=== PATIENT | male | born 1990 | race Caucasian/White ===

== ENCOUNTER 2016-10-31 09:57 | Inpatient (IN) | payer OTHER ==
[~2016-10-31] VITALS: Ht 170.1 cm; Wt 74.2 kg
[~2016-10-31 09:57] MED LIST: EFFEXOR XR150 M1 PO; ETODOLAC300 M1 PO; FLOMAX0.4 MG PO; GABAPENTIN TAB600 MG PO; PAXIL20 M1 PO; XANAX2 M1 PO
[2016-10-31 10:06] VITALS: BP 153/69
[2016-10-31] MEDS ORDERED: METHADONE HCL40 M2 PO (10:26)
[2016-10-31] MEDS ORDERED: TRAZADONE HYDR100 MG PO (10:27)
[2016-10-31 10:31] LABS: BASO % 0.3 % (0.0-1.0); EOS % 0.3 % (1.0-4.0); HEMATOCRIT 44.7 % (42.0-52.0); HEMOGLOBIN 15.4 g/dl (14.0-18.0); LYMPH # 3.1 10*3/uL (1.3-4.4); LYMPH % 26.5 % (27.0-41.0); MEAN CELL VOLUME 89.6 fl (80.0-94.0); MEAN CORPUSCULAR HGB 30.9 pg (27.0-31.0); MEAN CORPUSCULAR HGB CONC 34.5 g/dl (33.0-37.0); MEAN PLATELET VOLUME 11.2 fl (9.6-12.3); MONO # 0.7 10*3/uL (0.1-1.0); MONO % 6.2 % (3.0-9.0); NEUT # 7.9 10*3/uL (2.3-7.9); NEUT % 66.4 % (47.0-73.0); PLATELET COUNT AUTOMATED 251 10*3/uL (130-400); RED BLOOD COUNT 4.99 10*6/uL (4.50-5.90); WHITE BLOOD COUNT 11.8 10*3/uL (4.8-10.8)
[2016-10-31 10:44] LABS: PROTHROMBIN TIME 10.5 SECONDS (9.0-12.4)
[2016-10-31 10:46] LABS: ALBUMIN 4.7 gm/dl (3.1-4.5); ALKALINE PHOSPHATASE 109 U/L (45-117); BILIRUBIN, TOTAL 0.6 mg/dl (0.2-1.0); BUN 9 mg/dl (7-24); CARBON DIOXIDE 29 mmol/L (21-32); CHLORIDE 105 mmol/L (98-107); EST GLOM FILT AFRICAN AMERICAN > 60 ml/min; GLUCOSE 143 mg/dL (65-99); POTASSIUM 3.5 mmol/L (3.5-5.1); SGOT/AST 20 IU/L (3-35); SGPT/ALT 25 U/L (12-78); SODIUM 141 mmol/L (136-145)
[2016-10-31 10:48] LABS: C-REACTIVE PROTEIN < 0.29 MG/DL (0-0.3); TROPONIN I < 0.015 ng/ml (<0.045)
[2016-10-31 12:00] VITALS: BP 110/72
[2016-10-31 13:54] LABS: BILIRUBIN NEGATIVE (NEGATIVE); BLOOD NEGATIVE (NEGATIVE); CLARITY CLEAR (CLEAR); COLOR YELLOW (YELLOW); GLUCOSE NEGATIVE (NEGATIVE); KETONE NEGATIVE (NEGATIVE); LEUKO ESTERASE NEGATIVE (NEGATIVE); NITRITE NEGATIVE (NEGATIVE); PH 5.5 (5.0-9.0); PROTEIN NEGATIVE (NEGATIVE); SPECIFIC GRAVITY <= 1.005 (1.005-1.030); UROBILINOGEN 0.2 E.U./dl (0.2-1.0)
[2016-10-31 14:03] LABS: EPITHELIAL CELLS 0-2; RBC 0-2 rbc/hpf (0-2); URINE AMPHETAMINES < 1000 (1000ng/ml); URINE BARBITURATES < 200 (200ng/ml); URINE COCAINE < 300 (300ng/ml); URINE REFLEX COMMENT NO (NO); WBC 0-2 wbc/hpf (0-5)
[2016-10-31 14:50] VITALS: BP 134/82
[2016-10-31] MEDS ORDERED: XANAX2 M1 PO (15:10)
[2016-10-31] MEDS ORDERED: MIRTAZAPINE15 M1 PO (15:11)
[2016-10-31] MEDS ORDERED: FLOMAX0.4 MG PO (15:12)
[2016-10-31] MEDS ORDERED: PROVENTIL0.09 MG/A1 INH (15:13)
[2016-10-31] MEDS ORDERED: EFFEXOR XR150 M1 PO (15:13)
[2016-10-31 16:00] VITALS: BP 110/72
[2016-10-31] MEDS ORDERED: TRAZODONE100 MG PO (17:05)
== END 2016-10-31 17:50 | disposition left against medical advice (07) | DRG 282 ==
LOC: ED 09:57 → EDHOLD 13:40 → 4E 14:10
PROVIDERS: Emergency Medicine
DX: I21.3 ST elevation (STEMI) myocardial infarction of unspecified site (principal); R55 Syncope and collapse; M54.9 Dorsalgia, unspecified; R03.0 Elevated blood-pressure reading, without diagnosis of hypertension; Z53.21 Procedure and treatment not carried out due to patient leaving prior to being seen by health care provider; R51 Headache; F17.210 Nicotine dependence, cigarettes, uncomplicated; Z79.899 Other long term (current) drug therapy; Z71.6 Tobacco abuse counseling

== ENCOUNTER 2021-10-13 02:48 | Emergency (ER) | payer OTHER ==
[~2021-10-13] VITALS: Ht 172.7 cm; Wt 72.6 kg
[~2021-10-13 02:48] MED LIST changes: +METHADONE HCL40 M2 PO; +MIRTAZAPINE15 M1 PO; +PROVENTIL0.09 MG/A1 INH; +TRAZADONE HYDR100 MG PO; +TRAZODONE100 MG PO
== END 2021-10-13 03:26 | disposition left against medical advice (07) ==
LOC: ED 02:48
DX: T50.901A Poisoning by unspecified drugs, medicaments and biological substances, accidental (unintentional), initial encounter (principal); R03.0 Elevated blood-pressure reading, without diagnosis of hypertension; R00.0 Tachycardia, unspecified; Z87.891 Personal history of nicotine dependence; Z79.899 Other long term (current) drug therapy; Y92.89 Other specified places as the place of occurrence of the external cause

== ENCOUNTER 2021-12-01 16:06 | Emergency (ER) | payer OTHER ==
[~2021-12-01] VITALS: Ht 170.1 cm; Wt 74.8 kg
[2021-12-01] MEDS ORDERED: MEDROL DOSEPAK4 MG PO (18:14)
== END 2021-12-01 19:23 | disposition home or self-care (01) ==
LOC: ED 16:06
DX: G57.00 Lesion of sciatic nerve, unspecified lower limb (principal); F17.210 Nicotine dependence, cigarettes, uncomplicated; Z79.899 Other long term (current) drug therapy; Z98.890 Other specified postprocedural states

== ENCOUNTER 2022-11-13 09:51 | Emergency (ER) | payer OTHER ==
[~2022-11-13] VITALS: Ht 172.7 cm; Wt 74.8 kg
[~2022-11-13 09:51] MED LIST changes: +MEDROL DOSEPAK4 MG PO
[2022-11-13] MEDS ORDERED: VALIUM10 MG PO (10:12)
[2022-11-13] MEDS ORDERED: BUSPAR5 MG PO (10:13)
== END 2022-11-13 11:46 | disposition home or self-care (01) ==
LOC: ED 09:51
DX: S41.111A Laceration without foreign body of right upper arm, initial encounter (principal); S80.872A Other superficial bite, left lower leg, initial encounter; S80.871A Other superficial bite, right lower leg, initial encounter; R07.89 Other chest pain; F17.200 Nicotine dependence, unspecified, uncomplicated; Z79.899 Other long term (current) drug therapy; W54.0XXA Bitten by dog, initial encounter; Y93.89 Activity, other specified; Y92.89 Other specified places as the place of occurrence of the external cause; Y99.8 Other external cause status

== ENCOUNTER 2022-11-14 18:43 | Inpatient (IN) | payer OTHER ==
[~2022-11-14] VITALS: Ht 172.7 cm; Wt 69.0 kg
[~2022-11-14 18:43] MED LIST changes: +BUSPAR5 MG PO; +VALIUM10 MG PO
[2022-11-14 18:56] VITALS: BP 112/86
[2022-11-14 20:05] LABS: BASO % 0.3 % (0.0-1.0); EOS # 0.1 10*3/uL (0.0-0.4); HEMATOCRIT 42.1 % (42.0-52.0); LYMPH # 2.2 10*3/uL (1.3-4.4); LYMPH % 19.6 % (27.0-41.0); MEAN CELL VOLUME 86.3 fl (80.0-94.0); MEAN CORPUSCULAR HGB 30.9 pg (27.0-31.0); MEAN CORPUSCULAR HGB CONC 35.9 g/dl (33.0-37.0); MEAN PLATELET VOLUME 11.1 fl (9.6-12.3); MONO # 1.2 10*3/uL (0.1-1.0); MONO % 10.5 % (3.0-9.0); NEUT # 7.8 10*3/uL (2.3-7.9); NEUT % 68.4 % (47.0-73.0); PLATELET COUNT AUTOMATED 258 10*3/uL (130-400); RED BLOOD COUNT 4.88 10*6/uL (4.50-5.90); RED CELL DISTRI WIDTH 11.9 % (0-14.5); WHITE BLOOD COUNT 11.5 10*3/uL (4.8-10.8)
[2022-11-14 20:26] LABS: ALKALINE PHOSPHATASE 112 U/L (46-116); BUN 23 mg/dl (9-23); CHLORIDE 95 mmol/L (98-107); POTASSIUM 2.8 mmol/L (3.4-5.1); SGPT/ALT 74 U/L (10-49); TOTAL PROTEIN 7.9 gm/dL (6.0-8.0)
[2022-11-15 01:20] VITALS: BP 120/63
[2022-11-15] MEDS ORDERED: REMERON15 M2 PO (02:15)
[2022-11-15 06:33] LABS: BASO % 0.4 % (0.0-1.0); EOS # 0.1 10*3/uL (0.0-0.4); EOS % 1.3 % (1.0-4.0); HEMATOCRIT 41.4 % (42.0-52.0); LYMPH # 2.5 10*3/uL (1.3-4.4); LYMPH % 24.8 % (27.0-41.0); MEAN CELL VOLUME 88.5 fl (80.0-94.0); MEAN CORPUSCULAR HGB 31.2 pg (27.0-31.0); MEAN CORPUSCULAR HGB CONC 35.3 g/dl (33.0-37.0); MEAN PLATELET VOLUME 10.8 fl (9.6-12.3); MONO # 1.1 10*3/uL (0.1-1.0); MONO % 10.8 % (3.0-9.0); NEUT # 6.4 10*3/uL (2.3-7.9); NEUT % 62.5 % (47.0-73.0); PLATELET COUNT AUTOMATED 241 10*3/uL (130-400); RED BLOOD COUNT 4.68 10*6/uL (4.50-5.90); RED CELL DISTRI WIDTH 12.2 % (0-14.5); WHITE BLOOD COUNT 10.2 10*3/uL (4.8-10.8)
[2022-11-15 07:26] LABS: ALKALINE PHOSPHATASE 95 U/L (46-116); BUN 19 mg/dl (9-23); CHLORIDE 101 mmol/L (98-107); POTASSIUM 3.3 mmol/L (3.4-5.1); SGPT/ALT 62 U/L (10-49)
[2022-11-15 07:48] VITALS: BP 116/74
[2022-11-15] MEDS ORDERED: BUSPAR15 MG PO (09:20)
[2022-11-15 12:00] VITALS: BP 126/69
[2022-11-15 16:00] VITALS: BP 130/70
[2022-11-15 20:00] VITALS: BP 127/73
[2022-11-16] VITALS: BP 123/66
[2022-11-16 06:19] LABS: ALKALINE PHOSPHATASE 87 U/L (46-116); BUN 12 mg/dl (9-23); CHLORIDE 109 mmol/L (98-107); CHOLESTEROL 91 mg/dL (<200); LDL CHOLESTEROL 28 mg/dL (9-159); POTASSIUM 3.6 mmol/L (3.4-5.1); SGPT/ALT 44 U/L (10-49); THYROID STIM HORMONE (HS) 0.514 uIU/ml (0.550-4.780); TOTAL PROTEIN 5.8 gm/dL (6.0-8.0); TRIGLYCERIDES 104 mg/dl (<150)
[2022-11-16 06:34] LABS: BASO % 0.5 % (0.0-1.0); EOS # 0.3 10*3/uL (0.0-0.4); EOS % 2.9 % (1.0-4.0); HEMATOCRIT 37.7 % (42.0-52.0); LYMPH # 2.8 10*3/uL (1.3-4.4); LYMPH % 32.1 % (27.0-41.0); MEAN CORPUSCULAR HGB 31.4 pg (27.0-31.0); MEAN CORPUSCULAR HGB CONC 33.7 g/dl (33.0-37.0); MEAN PLATELET VOLUME 11.4 fl (9.6-12.3); MONO # 0.9 10*3/uL (0.1-1.0); MONO % 10.7 % (3.0-9.0); NEUT # 4.6 10*3/uL (2.3-7.9); NEUT % 53.6 % (47.0-73.0); PLATELET COUNT AUTOMATED 221 10*3/uL (130-400); RED BLOOD COUNT 4.05 10*6/uL (4.50-5.90); RED CELL DISTRI WIDTH 12.6 % (0-14.5); WHITE BLOOD COUNT 8.6 10*3/uL (4.8-10.8)
[2022-11-16 06:38] LABS: MEAN CELL VOLUME 93.1 fl (80.0-94.0)
[2022-11-16 08:00] VITALS: BP 107/58
[2022-11-16 09:05] LABS: VITAMIN D, 25-HYDROXY 41.2 ng/mL (30-100)
[2022-11-16 12:00] VITALS: BP 118/64
[2022-11-16 16:00] VITALS: BP 124/58
[2022-11-16 20:00] VITALS: BP 123/68
[2022-11-17] VITALS: BP 104/45
[2022-11-17 06:08] LABS: HBSAG Negative (Negative); HEP B CORE AB, IGM Negative (Negative); HEPATITIS C ANTIBODY Non Reactive (Non Reactive)
[2022-11-17 08:00] VITALS: BP 117/65
[2022-11-17] MEDS ORDERED: SEPTDS PO (10:40)
== END 2022-11-17 13:12 | disposition home or self-care (01) | DRG 351 ==
LOC: ED 18:43 → EDHOLD 11-15 00:51 → 4E 11-15 00:51
PROVIDERS: Emergency Medicine; Internal Medicine; Student in an Organized Health Care Education/Training Program; ADMIT Internal Medicine; ATTEND Internal Medicine
DX: S41.151A Open bite of right upper arm, initial encounter (principal); E87.6 Hypokalemia; R74.01 Elevation of levels of liver transaminase levels; L03.111 Cellulitis of right axilla; B95.62 Methicillin resistant Staphylococcus aureus infection as the cause of diseases classified elsewhere; E87.1 Hypo-osmolality and hyponatremia; R73.9 Hyperglycemia, unspecified; F17.210 Nicotine dependence, cigarettes, uncomplicated; Z71.6 Tobacco abuse counseling; W54.0XXA Bitten by dog, initial encounter; Y93.89 Activity, other specified; Y92.89 Other specified places as the place of occurrence of the external cause; Y99.8 Other external cause status; Z79.899 Other long term (current) drug therapy